=== PATIENT | female | born 1960 | race African-American/Black ===

== ENCOUNTER → 2019-04-19 | Day surgery (SDC) | payer OTHER ==
[~2019-04-19] MED LIST: AMLODIP; ATORVASTATIN; JANUMET; LIDOCAINE 2% PF 5 ML VIAL. ONE; LISINOPRIL; PROPOFOL 20 ML IV ONE
[2019-04-19] MEDS: IV RINGERS,LACTATED 1000ML 1,000 ML IV SCH (07:39)
[2019-04-19 08:19] VITALS: BP 123/68
--- NOTE | 2019-04-19 09:04 | HP ---
ADMIT DATE: 04/19/2019 REFERRING PHYSICIAN: Dr. Fabricio Escalera. REASON: Colorectal screening. HISTORY OF PRESENT ILLNESS: A 58-year-old female whose past medical history is significant for colonic polyps, diabetes, hypertension, hyperlipidemia, seen for interval colon exam. Last exam was done in 2011. Family history positive for colon cancer with her father in his 80s. She has had regular bowel movements without melena or hematochezia. There has been some diarrhea, but this has slowed since she switched from metformin to Janumet. Weight and appetite are stable, and she is otherwise without additional complaints. PAST MEDICAL HISTORY: Colonic polyps, diabetes, hypertension, hyperlipidemia. ALLERGIES: None. MEDICATIONS: Include amlodipine, atorvastatin, Janumet, lisinopril. FAMILY HISTORY: Significant for colon cancer with her father, hypertension with her father. SOCIAL HISTORY: She is a nondrinker, nonsmoker. PAST SURGICAL HISTORY: Status post appendectomy, hysterectomy. REVIEW OF SYSTEMS: As per records. PHYSICAL EXAMINATION: GENERAL: Reveals a well-nourished, well-developed -Citizen Of [place] female who is alert and cooperative, no acute distress. VITAL SIGNS: Temperature 97, pulse 65, respirations 20. HEENT: Normocephalic and atraumatic head. Pupils and extraocular muscles are not tested. Sclerae anicteric. NECK: Supple. LUNGS: Clear. CARDIOVASCULAR: Reveals an S1, S2 without S3, S4 or appreciable murmur. ABDOMEN: Reveals soft abdomen, normal bowel sounds without appreciable hepatosplenomegaly. EXTREMITIES: Reveal no cyanosis, clubbing or edema. IMPRESSION: Colorectal screen with history of colonic polyps is recommended at this time. Risks and benefits of procedure including risk of hemorrhage and perforation discussed. The patient is willing to proceed. LEANDRO DECKER MD DR: RICHARD/faith JOB#: [id number] / [id number] [facility] RECORDS, MEDICAL
== END ==
LOC: SURG 07:07
PROVIDERS: ATTEND Internal Medicine Gastroenterology
DX: Z12.11 Encounter for screening for malignant neoplasm of colon (principal); K57.30 Diverticulosis of large intestine without perforation or abscess without bleeding; K64.0 First degree hemorrhoids; E11.9 Type 2 diabetes mellitus without complications; I10 Essential (primary) hypertension; E78.5 Hyperlipidemia, unspecified; Z80.0 Family history of malignant neoplasm of digestive organs; Z86.010 Personal history of colon polyps; Z90.710 Acquired absence of both cervix and uterus; Z98.890 Other specified postprocedural states; Z79.84 Long term (current) use of oral hypoglycemic drugs
CPT/HCPCS: 45378; J2001; J2704